=== PATIENT | male | born 2000 | race Caucasian/White ===

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

== ENCOUNTER 2023-05-26 19:36 | Emergency (ER) | payer BC, MEDICAID, OTHER ==
[~2023-05-26] VITALS: Ht 182.9 cm; Wt 79.5 kg
[2023-05-26 19:49] VITALS: TEMP 97.1
[2023-05-26] MEDS ORDERED: NS 1,000 ML IV ONE (20:30)
[2023-05-26 20:53] LABS: BASO # 0.1 10^3/uL (0.0-0.2); BASO % 0.5 % (0.0-1.0); EOS # 0.1 10^3/uL (0.0-0.5); EOS % 0.6 % (0.0-3.0); HEMATOCRIT 45.1 % (42.0-52.0); HEMOGLOBIN 15.2 g/dl (13.5-17.5); LYMPH # 1.5 10^3/uL (1.5-5.0); LYMPH % 13.4 % (24.0-44.0); MEAN CORPUSCULAR HEMOGLOBIN 30.5 pg (27.0-33.0); MEAN CORPUSCULAR HGB CONC 33.7 g/dl (32.0-36.5); MEAN CORPUSCULAR VOLUME 90.4 fl (80.0-96.0); MONO % 9.3 % (2.0-8.0); NEUTROPHILS # 8.2 10^3/uL (1.5-8.5); NEUTROPHILS % 75.5 % (36.0-66.0); PLATELET COUNT, AUTOMATED 232 10^3/uL (150-450); RED BLOOD COUNT 4.99 10^6/uL (4.30-6.10); WHITE BLOOD COUNT 10.9 10^3/uL (4.0-10.0)
[2023-05-26] MEDS ORDERED: ISOVUE-370 76% 100ML VIAL As Ordered ONE (21:00)
[2023-05-26] MEDS ORDERED: POTASSIUM CHLORIDE 10MEQ SR TABLET PO ONE (21:10)
[2023-05-26 22:30] VITALS: BP 141/69; O2SAT 98
== END 2023-05-26 23:44 | disposition home or self-care (01) ==
LOC: EDBD 19:36 → M ED 19:36
DX: S40.022A Contusion of left upper arm, initial encounter (principal); S06.0X0A Concussion without loss of consciousness, initial encounter; F90.9 Attention-deficit hyperactivity disorder, unspecified type; Y04.0XXA Assault by unarmed brawl or fight, initial encounter; Y92.9 Unspecified place or not applicable; Y93.9 Activity, unspecified; Y99.9 Unspecified external cause status
CPT/HCPCS: 36415; 70450; 71260; 72125; 73060; 73090; 74177; 80047; 85025; 93041; 94760; 99284; Q9967

== ENCOUNTER 2023-10-27 17:26 | Emergency (ER) | payer OTHER | END 2023-10-27 17:31 | disposition left against medical advice (07) | LOC: M ED 17:26 | DX: Z53.21 Procedure and treatment not carried out due to patient leaving prior to being seen by health care provider (principal) ==

== ENCOUNTER 2024-05-24 15:12 | Emergency (ER) | payer BC, OTHER ==
[~2024-05-24] VITALS: Ht 182.9 cm; Wt 72.0 kg
[~2024-05-24 15:12] MED LIST changes: +ONDA-282 PO; -ONDA4TAB6 PO
[2024-05-24] MEDS ORDERED: PERCOCET PO (17:30)
[2024-05-24 17:49] VITALS: BP 137/60; TEMP 97.9; O2SAT 98
== END 2024-05-24 17:50 | disposition home or self-care (01) ==
LOC: M ED 15:12
DX: S92.514A Nondisplaced fracture of proximal phalanx of right lesser toe(s), initial encounter for closed fracture (principal); W22.03XA Walked into furniture, initial encounter; Y92.009 Unspecified place in unspecified non-institutional (private) residence as the place of occurrence of the external cause; Y93.89 Activity, other specified; Y99.9 Unspecified external cause status; Z87.891 Personal history of nicotine dependence; Z79.899 Other long term (current) drug therapy

== ENCOUNTER 2024-06-04 05:04 | Emergency (ER) | payer OTHER, BC ==
[~2024-06-04] VITALS: Ht 177.8 cm; Wt 68.2 kg
[~2024-06-04 05:04] MED LIST changes: +PERCOCET PO
[2024-06-04] MEDS ORDERED: ISOVUE-370 76% 100ML VIAL As Ordered ONE (05:12)
[2024-06-04] MEDS: LORazepam 2 MG/ML 1ML VIAL IV STA (05:27)
[2024-06-04 05:32] LABS: VENOUS BASE EXCESS -2.4 (-2.0-2.0); VENOUS HCO3 22.9 MMOL/L (23.0-27.0); VENOUS O2 SATURATION 53.8 % (60.0-80.0); VENOUS PARTIAL PRESSURE CO2 41.2 mmHg (38.0-50.0); VENOUS PARTIAL PRESSURE O2 29.3 mmHg (30.0-50.0); VENOUS PH 7.362 UNITS (7.330-7.430); VENOUS STANDARD HCO3 21.3 MMOL/L; VENOUS TOTAL CO2 24.1 MMOL/L (24.0-28.0)
[2024-06-04 05:55] LABS: BASO # 0.1 10^3/uL (0.0-0.2); BASO % 0.7 % (0.0-1.0); EOS # 0.2 10^3/uL (0.0-0.5); EOS % 1.6 % (0.0-3.0); HEMATOCRIT 47.6 % (42.0-52.0); HEMOGLOBIN 15.9 g/dl (13.5-17.5); LYMPH % 43.9 % (24.0-44.0); MEAN CORPUSCULAR HEMOGLOBIN 30.3 pg (27.0-33.0); MEAN CORPUSCULAR HGB CONC 33.4 g/dl (32.0-36.5); MEAN CORPUSCULAR VOLUME 90.8 fl (80.0-96.0); MONO # 0.9 10^3/uL (0.0-0.8); MONO % 9.5 % (2.0-8.0); NEUTROPHILS % 43.8 % (36.0-66.0); PLATELET COUNT, AUTOMATED 279 10^3/uL (150-450); RED BLOOD COUNT 5.24 10^6/uL (4.30-6.10); WHITE BLOOD COUNT 9.1 10^3/uL (4.0-10.0)
[2024-06-04 06:06] LABS: INR 1.04; PARTIAL THROMBOPLASTIN TIME 25.2 SECONDS (24.8-34.2); PROTHROMBIN TIME 13.9 SECONDS (12.5-14.5)
[2024-06-04 06:10] LABS: CK-MB VALUE MASS 1.5 NG/ML (<3.6); ETHYL ALCOHOL (ETHANOL) 0.214 % (0.000-0.010); LIPASE 68 U/L (12-53)
[2024-06-04 06:11] LABS: AMYLASE 82 U/L (30-118); CPK CREATINE PHOSPHOKINASE 114 U/L (46-171); MB/CK RELATIVE INDEX 1.31 (< OR =4)
[2024-06-04 06:12] LABS: ALBUMIN 4.5 G/DL (3.2-5.2); ALKALINE PHOSPHATASE 87 U/L (40-129); ALT/SGPT 25 U/L (7.0-40); AST/SGOT 19 U/L (<34); BILIRUBIN,DIRECT 0.9 MG/DL (<0.4); BILIRUBIN,TOTAL 2.6 MG/DL (0.3-1.2); BLOOD UREA NITROGEN 12 MG/DL (9-23); CALCIUM LEVEL 9.7 MG/DL (8.5-10.1); CARBON DIOXIDE LEVEL 25 MMOL/L (20-31); CHLORIDE LEVEL 107 MMOL/L (98-107); CREATININE FOR GFR 0.93 MG/DL (0.70-1.30); GLOMERULAR FILTRATION RATE > 60.0 (>60); GLUCOSE, FASTING 73 MG/DL (60-100); POTASSIUM SERUM 3.9 MMOL/L (3.5-5.1); SODIUM LEVEL 145 MMOL/L (136-145); TOTAL PROTEIN 7.5 G/DL (5.7-8.2)
[2024-06-04] MEDS: NS (Normal Saline) 0.9% 1,000 ML IV ONE ×2 (06:28→08:55)
[2024-06-04 08:09] LABS: ALBUMIN 3.5 G/DL (3.2-5.2); BILIRUBIN,DIRECT 0.7 MG/DL (<0.4); TOTAL PROTEIN 5.9 G/DL (5.7-8.2)
[2024-06-04 08:37] LABS: HEMATOCRIT 38.6 % (42.0-52.0); MEAN CORPUSCULAR HEMOGLOBIN 30.6 pg (27.0-33.0); MEAN CORPUSCULAR HGB CONC 33.4 g/dl (32.0-36.5); MEAN CORPUSCULAR VOLUME 91.7 fl (80.0-96.0); PLATELET COUNT, AUTOMATED 240 10^3/uL (150-450); RED BLOOD COUNT 4.21 10^6/uL (4.30-6.10); WHITE BLOOD COUNT 6.8 10^3/uL (4.0-10.0)
[2024-06-04 08:45] LABS: HEMOGLOBIN 12.9 g/dl (13.5-17.5)
[2024-06-04 10:45] VITALS: BP 119/70; TEMP 98.8; O2SAT 100
== END 2024-06-04 11:19 | disposition home or self-care (01) ==
LOC: M ED 05:04 → EDBD 05:04 → M ED 11:19
DX: S06.0X0A Concussion without loss of consciousness, initial encounter (principal); S20.212A Contusion of left front wall of thorax, initial encounter; S30.1XXA Contusion of abdominal wall, initial encounter; Y92.410 Unspecified street and highway as the place of occurrence of the external cause; Y93.9 Activity, unspecified; Y99.9 Unspecified external cause status; V47.5XXA Car driver injured in collision with fixed or stationary object in traffic accident, initial encounter; R00.0 Tachycardia, unspecified; F10.10 Alcohol abuse, uncomplicated; Z79.899 Other long term (current) drug therapy
CPT/HCPCS: 70450; 71260; 72125; 74177; 80047; 80048; 80076; 82077; 82150; 82550; 82553; 82803; 83605; 83690; 84484; 85025; 85027; 85610; 85730; 86850; 86900; 86901; 93005; 93041; 94760; 96361; 96374; 99285; J2060; Q9967

== ENCOUNTER → 2024-06-21 | Outpatient (CLI) | payer OTHER, BC | LOC: M SOG 07:55 | PROVIDERS: ATTEND Physician Assistant | DX: Z53.9 Procedure and treatment not carried out, unspecified reason (principal) ==

== ENCOUNTER 2024-07-13 13:04 | Emergency (ER) | payer BC, OTHER ==
[~2024-07-13] VITALS: Ht 182.9 cm; Wt 77.0 kg
[2024-07-13 13:46] LABS: KETONE, URINE AUTO RFX NEGATIVE (NEGATIVE); LEUKOCYTE ESTERASE UR AUTO RFX NEGATIVE (NEGATIVE); MUCUS, URINE RFX SMALL (NEGATIVE); NITRITE, URINE AUTO RFX NEGATIVE (NEGATIVE); RBC, URINE AUTO RFX 2 /HPF (0-3); SQUAM EPITHELIAL CELL UR AURFX 0 /HPF (0-6); WBC, URINE AUTO RFX 4 /HPF (0-3)
[2024-07-13 13:52] LABS: BASO % 0.3 % (0.0-1.0); EOS % 0.3 % (0.0-3.0); HEMATOCRIT 38.2 % (42.0-52.0); LYMPH # 1.3 10^3/uL (1.5-5.0); LYMPH % 11.9 % (24.0-44.0); MEAN CORPUSCULAR HEMOGLOBIN 31.7 pg (27.0-33.0); MEAN CORPUSCULAR VOLUME 93.2 fl (80.0-96.0); MONO # 1.2 10^3/uL (0.0-0.8); MONO % 11.7 % (2.0-8.0); NEUTROPHILS % 75.4 % (36.0-66.0); PLATELET COUNT, AUTOMATED 203 10^3/uL (150-450); WHITE BLOOD COUNT 10.6 10^3/uL (4.0-10.0)
[2024-07-13 14:20] LABS: ALBUMIN 3.5 G/DL (3.2-5.2); BILIRUBIN,DIRECT 0.9 MG/DL (<0.4); BILIRUBIN,TOTAL 2.7 MG/DL (0.3-1.2); CREATININE FOR GFR 1.88 MG/DL (0.70-1.30); GLOMERULAR FILTRATION RATE 48.5 (>60); POTASSIUM SERUM 4.1 MMOL/L (3.5-5.1); TOTAL PROTEIN 6.6 G/DL (5.7-8.2)
[2024-07-13] MEDS: ACETAMINOPHEN 325 MG TAB PO ONE (15:33)
[2024-07-13] MEDS: ONDANSETRON 4MG ORAL DISINTEGRATING TAB PO ONE (15:33)
[2024-07-13] MEDS: NS (Normal Saline) 0.9% 1,000 ML IV ONE (15:43)
[2024-07-13 18:58] LABS: CREATININE FOR GFR 1.88 MG/DL (0.70-1.30); GLOMERULAR FILTRATION RATE 48.5 (>60); POTASSIUM SERUM 3.6 MMOL/L (3.5-5.1)
[2024-07-13] MEDS ORDERED: ONDA-282 PO (19:34)
[2024-07-13] MEDS ORDERED: CEFD1CAP9 PO (19:34)
[2024-07-13 19:47] VITALS: BP 127/79; TEMP 97.1; O2SAT 99
== END 2024-07-13 19:58 | disposition home or self-care (01) ==
LOC: M ED 13:04
DX: N39.0 Urinary tract infection, site not specified (principal); N17.9 Acute kidney failure, unspecified; R10.32 Left lower quadrant pain; F90.9 Attention-deficit hyperactivity disorder, unspecified type; Z79.2 Long term (current) use of antibiotics; Z79.83 Long term (current) use of bisphosphonates; Z79.899 Other long term (current) drug therapy

== ENCOUNTER 2024-07-15 06:16 | Inpatient (IN) | payer BC ==
[~2024-07-15] VITALS: Ht 182.9 cm; Wt 79.1 kg
[~2024-07-15 06:16] MED LIST changes: +CEFD1CAP9 PO
[2024-07-15] MEDS: NS (Normal Saline) 0.9% 1,000 ML IV ONE ×2 (09:37→10:30)
[2024-07-15] MEDS: ACETAMINOPHEN *IV* 1,000 MG in IV 1 EA IV ONE (09:37)
[2024-07-15] MEDS: METOCLOPRAMIDE INJ 10MG/2ML VIAL IV ONE (09:37)
[2024-07-15 09:45] LABS: BASO % 0.3 % (0.0-1.0); EOS # 0.1 10^3/uL (0.0-0.5); HEMATOCRIT 38.9 % (42.0-52.0); HEMOGLOBIN 12.9 g/dl (13.5-17.5); LYMPH # 1.4 10^3/uL (1.5-5.0); LYMPH % 20.9 % (24.0-44.0); MEAN CORPUSCULAR HEMOGLOBIN 30.9 pg (27.0-33.0); MEAN CORPUSCULAR HGB CONC 33.2 g/dl (32.0-36.5); MEAN CORPUSCULAR VOLUME 93.1 fl (80.0-96.0); MONO # 0.9 10^3/uL (0.0-0.8); MONO % 13.6 % (2.0-8.0); NEUTROPHILS # 4.3 10^3/uL (1.5-8.5); NEUTROPHILS % 63.5 % (36.0-66.0); PLATELET COUNT, AUTOMATED 212 10^3/uL (150-450); RED BLOOD COUNT 4.18 10^6/uL (4.30-6.10); WHITE BLOOD COUNT 6.8 10^3/uL (4.0-10.0)
[2024-07-15 09:53] LABS: KETONE, URINE AUTO RFX NEGATIVE (NEGATIVE); LEUKOCYTE ESTERASE UR AUTO RFX NEGATIVE (NEGATIVE); MUCUS, URINE RFX SMALL (NEGATIVE); NITRITE, URINE AUTO RFX NEGATIVE (NEGATIVE); RBC, URINE AUTO RFX 1 /HPF (0-3); SQUAM EPITHELIAL CELL UR AURFX 0 /HPF (0-6); WBC, URINE AUTO RFX 1 /HPF (0-3)
[2024-07-15 10:06] LABS: CALCIUM LEVEL 8.4 MG/DL (8.5-10.1); CREATININE FOR GFR 3.04 MG/DL (0.70-1.30); GLOMERULAR FILTRATION RATE 27.8 (>60); POTASSIUM SERUM 3.6 MMOL/L (3.5-5.1)
[2024-07-15] MEDS ORDERED: ONDA-282 PO (10:26)
[2024-07-15] MEDS ORDERED: CEFD1CAP9 PO (10:27)
[2024-07-15] MEDS ORDERED: HOME MED LIST COMPLETE! XX SCH (10:30)
[2024-07-15 10:47] LABS: ETHYL ALCOHOL (ETHANOL) 0.009 % (0.000-0.010)
[2024-07-15 10:55] LABS: ALBUMIN 3.2 G/DL (3.2-5.2); BILIRUBIN,DIRECT 0.3 MG/DL (<0.4); BILIRUBIN,TOTAL 0.8 MG/DL (0.3-1.2); TOTAL PROTEIN 6.3 G/DL (5.7-8.2)
[2024-07-15] MEDS ORDERED: LORazepam 2 MG TAB PO PRN (11:35)
[2024-07-15 12:20] LABS: AMPHETAMINES LEVEL URINE NEGATIVE (NEGATIVE); BARBITURATES URINE NEGATIVE (NEGATIVE); BENZODIAZEPINES URINE NEGATIVE (NEGATIVE); COCAINE METABOLITE URINE NEGATIVE (NEGATIVE); METHADONE URINE NEGATIVE (NEGATIVE); OPIATES URINE NEGATIVE (NEGATIVE); PHENCYCLIDINE URINE NEGATIVE (NEGATIVE)
[2024-07-15 12:22] LABS: CANNABINOIDS URINE POSITIVE (NEGATIVE)
[2024-07-15 12:56] LABS: PROCALCITONIN 0.09 ng/ml
[2024-07-15] MEDS: MULTIVITAMINS/MINERALS THERAP 1 TAB PO SCH (13:17)
[2024-07-15] MEDS: THIAMINE 100 MG TAB PO SCH (13:17)
[2024-07-15] MEDS: FOLIC ACID 1MG TAB PO SCH (13:17)
[2024-07-15] MEDS: LR 1,000 ML IV SCH (13:21)
[2024-07-15 14:54] VITALS: BP 128/80; TEMP 97.6; O2SAT 100
[2024-07-15] MEDS: HEPARIN SOD (PORCINE) 5000UNITS/ML 1ML VIAL/SYRINGE SC SCH (15:37)
[2024-07-15 16:57] LABS: CREATININE,RANDOM URINE 44.4 MG/DL
[2024-07-15 17:39] LABS: COMPLEMENT C3 117.4 MG/DL (82.0-160.0); COMPLEMENT C4 23.2 MG/DL (12-36)
[2024-07-15 18:35] LABS: TOTAL PROTEIN,RANDOM URINE 34.6 MG/DL (0.0-14.0)
[2024-07-15 20:02] VITALS: BP 129/79; TEMP 98.2; O2SAT 99
[2024-07-15 20:10] VITALS: BP 129/79
[2024-07-16 04:00] VITALS: BP 124/79; TEMP 98.1; O2SAT 98
[2024-07-16] MEDS: ONDANSETRON 4MG 2ML VIAL IV PRN (05:42)
[2024-07-16 06:52] LABS: HEMATOCRIT 36.6 % (42.0-52.0); HEMOGLOBIN 12.2 g/dl (13.5-17.5); MEAN CORPUSCULAR HEMOGLOBIN 30.9 pg (27.0-33.0); MEAN CORPUSCULAR HGB CONC 33.3 g/dl (32.0-36.5); MEAN CORPUSCULAR VOLUME 92.7 fl (80.0-96.0); PLATELET COUNT, AUTOMATED 203 10^3/uL (150-450); RED BLOOD COUNT 3.95 10^6/uL (4.30-6.10); WHITE BLOOD COUNT 6.2 10^3/uL (4.0-10.0)
[2024-07-16 06:56] LABS: ALBUMIN 3.1 G/DL (3.2-5.2); CALCIUM LEVEL 8.8 MG/DL (8.5-10.1); CREATININE FOR GFR 2.61 MG/DL (0.70-1.30); GLOMERULAR FILTRATION RATE 33.2 (>60); POTASSIUM SERUM 3.8 MMOL/L (3.5-5.1); TOTAL PROTEIN 6.1 G/DL (5.7-8.2)
[2024-07-16 12:00] VITALS: BP 125/78; TEMP 98.2; O2SAT 99
[2024-07-16 19:51] VITALS: BP 125/71; TEMP 98.1; O2SAT 94
[2024-07-17 04:00] VITALS: BP 118/65; TEMP 97.7; O2SAT 97
[2024-07-17 06:24] LABS: BASO % 0.7 % (0.0-1.0); EOS # 0.1 10^3/uL (0.0-0.5); EOS % 2.2 % (0.0-3.0); HEMATOCRIT 38.8 % (42.0-52.0); HEMOGLOBIN 12.7 g/dl (13.5-17.5); LYMPH # 1.9 10^3/uL (1.5-5.0); LYMPH % 31.3 % (24.0-44.0); MEAN CORPUSCULAR HEMOGLOBIN 30.5 pg (27.0-33.0); MEAN CORPUSCULAR HGB CONC 32.7 g/dl (32.0-36.5); MONO # 0.8 10^3/uL (0.0-0.8); MONO % 13.7 % (2.0-8.0); NEUTROPHILS % 51.1 % (36.0-66.0); PLATELET COUNT, AUTOMATED 217 10^3/uL (150-450); RED BLOOD COUNT 4.17 10^6/uL (4.30-6.10); WHITE BLOOD COUNT 5.9 10^3/uL (4.0-10.0)
[2024-07-17 06:48] LABS: CALCIUM LEVEL 8.9 MG/DL (8.5-10.1); CREATININE FOR GFR 2.32 MG/DL (0.70-1.30); POTASSIUM SERUM 4.2 MMOL/L (3.5-5.1)
[2024-07-17 06:50] LABS: TOTAL 25(OH) VITAMIN D 12.2 NG/ML (20.0-100.0)
[2024-07-17 08:22] LABS: HEPATITIS B SURFACE ANTIBODY NEGATIVE (POSITIVE)
[2024-07-17 08:34] LABS: HEPATITIS B SURFACE ANTIGEN NEGATIVE (NEGATIVE)
[2024-07-17 08:47] LABS: HIV 1&2 SCREEN NEGATIVE (NEGATIVE)
[2024-07-17 08:55] LABS: HEPATITIS C VIRUS ABY INDEX 0.13 INDEX (<0.8)
[2024-07-17 12:25] LABS: APPEARANCE, URINE CLEAR (CLEAR); BACTERIA, URINE AUTO NEGATIVE (NEGATIVE); BILIRUBIN, URINE AUTO NEGATIVE (NEGATIVE); BLOOD, URINE BLOOD 3+ (NEGATIVE); COLOR, URINE YELLOW (YELLOW); GLUCOSE, URINE (UA) AUTO NEGATIVE (NEGATIVE); KETONE, URINE AUTO NEGATIVE (NEGATIVE); LEUKOCYTE ESTERASE, URINE AUTO NEGATIVE (NEGATIVE); MUCUS, URINE SMALL (NEGATIVE); NITRITE, URINE AUTO NEGATIVE (NEGATIVE); PROTEIN, URINE AUTO NEGATIVE (NEGATIVE); RBC, URINE AUTO 4 /HPF (0-3); SPECIFIC GRAVITY URINE AUTO 1.003 (1.002-1.035); SQUAMOUS EPITHELIAL CELL UR AU 0 /HPF (0-6); UROBILINOGEN, URINE AUTO 0.2 mg/dL (0.0-2.0); WBC, URINE AUTO 0 /HPF (0-3)
[2024-07-17 12:45] VITALS: BP 128/65; TEMP 98.1; O2SAT 97
[2024-07-17 20:07] VITALS: BP 126/67; TEMP 97.7; O2SAT 99
[2024-07-18 04:05] VITALS: BP 120/66; TEMP 98.1; O2SAT 99
[2024-07-18 06:58] LABS: BASO % 0.6 % (0.0-1.0); EOS # 0.2 10^3/uL (0.0-0.5); EOS % 2.3 % (0.0-3.0); HEMATOCRIT 42.5 % (42.0-52.0); HEMOGLOBIN 14.1 g/dl (13.5-17.5); LYMPH # 2.3 10^3/uL (1.5-5.0); LYMPH % 34.3 % (24.0-44.0); MEAN CORPUSCULAR HEMOGLOBIN 31.1 pg (27.0-33.0); MEAN CORPUSCULAR HGB CONC 33.2 g/dl (32.0-36.5); MEAN CORPUSCULAR VOLUME 93.6 fl (80.0-96.0); MONO # 0.8 10^3/uL (0.0-0.8); MONO % 12.3 % (2.0-8.0); NEUTROPHILS # 3.3 10^3/uL (1.5-8.5); NEUTROPHILS % 49.7 % (36.0-66.0); PLATELET COUNT, AUTOMATED 212 10^3/uL (150-450); RED BLOOD COUNT 4.54 10^6/uL (4.30-6.10); WHITE BLOOD COUNT 6.6 10^3/uL (4.0-10.0)
[2024-07-18 07:24] LABS: CALCIUM LEVEL 9.4 MG/DL (8.5-10.1); CREATININE FOR GFR 2.15 MG/DL (0.70-1.30); GLOMERULAR FILTRATION RATE 41.5 (>60)
== END 2024-07-18 11:38 | disposition home or self-care (01) | DRG 469 ==
LOC: M ED 06:16 → M ED INP 11:16 → M MS5PR 14:45
PROVIDERS: ADMIT Internal Medicine; ATTEND Internal Medicine
DX: N17.9 Acute kidney failure, unspecified (principal); E80.4 Gilbert syndrome; F10.10 Alcohol abuse, uncomplicated; K52.9 Noninfective gastroenteritis and colitis, unspecified; F17.290 Nicotine dependence, other tobacco product, uncomplicated; R31.1 Benign essential microscopic hematuria

== ENCOUNTER → 2024-10-18 | Outpatient (CLI) | payer SELFPAY | LOC: M OUTALCOH 07:34 | PROVIDERS: ATTEND Psychiatry & Neurology Psychiatry | DX: Z03.89 Encounter for observation for other suspected diseases and conditions ruled out (principal) ==

== ENCOUNTER 2025-01-05 23:14 | Emergency (ER) | payer MEDICAID, OTHER ==
[~2025-01-05] VITALS: Ht 182.9 cm; Wt 91.0 kg
[2025-01-05 23:15] VITALS: BP 118/70; TEMP 97.5; O2SAT 99
== END 2025-01-06 00:23 | disposition left against medical advice (07) ==
LOC: M ED 23:14
DX: Z53.21 Procedure and treatment not carried out due to patient leaving prior to being seen by health care provider (principal)